=== PATIENT | male | born 1950 | race Caucasian/White ===

== ENCOUNTER 2018-03-31 08:56 | Outpatient (CLI) | payer MEDICARE, BC ==
--- NOTE | 2018-04-05 15:00 | RAD ---
MODIFIED BARIUM SWALLOW: History: Dysphasia, oropharyngeal phase R13.12. Dysphagia, pharyngeal/esophageal phase R13.14. Feedin g difficulties, R63.3 Comparison: None. Technique/Findings: Multiple consistencies of contrast was given to the patient via the speech pathologist. The radiologi st was not present. IMPRESSION: Fluoroscopy for the use of the speech pathologist. Please see their report for findings of the exam. POS: ANTHONY
== END 2018-03-31 08:57 | disposition home or self-care (01) ==
PROVIDERS: ATTEND Internal Medicine Gastroenterology
DX: R13.12 Dysphagia, oropharyngeal phase (principal); R13.14 Dysphagia, pharyngoesophageal phase; R63.3 Feeding difficulties; K21.9 Gastro-esophageal reflux disease without esophagitis
CPT/HCPCS: 74230

== ENCOUNTER 2019-07-04 12:47 | Outpatient (CLI) | payer MEDICARE, BC ==
--- NOTE | 2019-07-04 13:11 | RAD ---
RADIOGRAPH LUMBAR SPINE 4 VIEWS: DATE: 07/04/2019 HISTORY: 68-year-old male with low back pain and lumbar radiculopathy. COMPARISON: None TECHNIQUE: 3 lateral views in flexion, extension, and neutral. AP view. FINDINGS: There are 5 lumbar-type vertebrae. Levoscoliosis with apex of curvature at L2-3. High-grade disc spac e narrowing at L1-2, L2-3, L3-4, and L4-5, with endplate sclerosis and marginal osteophytosis at those levels. Mild disc space narrowing at T12-L1. Mild to moderate disc space narrowing at L5-S1. No major spondylolisthesis. Baastrup's disease. No instability between flexion and extension. High-grade left-sided facet DJD at L4-5. IMPRESSION: High-grade lumbar spondylosis with multilevel degenerative disc disease and levoscoliosis.
--- NOTE | 2019-07-04 13:43 | MRI ---
MRI Lumbar Spine Noncontrast: HISTORY: Low back pain with pain rating down right leg. Symptoms of been present for many years. COMPARISON: None FINDINGS: The visualized retroperitoneal structures demonstrate a normal appearance. Conus medullaris is normal in morphology and terminates at the T12-L1 level. Heterogeneous signal intensity is seen in the bone marrow. There is mild left convex scoliosis thorac olumbar spine. Subcentimeter focus of increased T1 and T2-weighted signal intensity is seen in the T12 vertebral body likely due to small focal area of fat versus a hemangioma. Multilevel endplate deg enerative changes are seen. There is severe multilevel height loss of the intervertebral discs. T12-L1 level: No significant central canal or neural foraminal narrowing. L1-2: Severe loss of intervertebral disc height. Mild facet hypertrophic changes are present greater on the right. Broad-based disc osteophyte complex is present resulting in mild narrowing of the central spinal canal. Moderate right and mild left-sided neural foraminal narrowing is present. L2-3: Broad-based disc osteophyte complex is present with facet hypertrophic changes and mild ligamen tous thickening. Mild to moderate central canal narrowing is present. Mild left and [id number] right-sided neural foraminal narrowing is present. L3-4: Severe loss of intervertebral disc height. Broad-based disc osteophyte complex is present. Face t hypertrophic changes are noted greater on the left. Mild narrowing of the central spinal canal is present with [id number] left and mild right-sided neural foraminal narrowing. L4-5: Broad-based disc osteophyte complex is present with mild right and moderate to severe left-side d facet hypertrophic changes. Fluid signal intensity is seen in the right facet joint. Mild narrowing central spinal canal is present. Moderate to severe left neural foraminal narrowing is pres ent with mild right-sided neural foraminal narrowing. L5-S1: Moderate to severe left-sided facet hypertrophic changes are seen. No significant disc bulge o r disc herniation is evident. Central spinal canal and neural foramina are patent. IMPRESSION: 1. Multilevel degenerative changes with left convex scoliosis lumbar spine. 2. Multilevel neural foraminal narrowing with greatest degree of neural foraminal narrowing on the le ft at the L4-5 level which is moderate to severe in severity.
== END 2019-07-04 12:48 | disposition home or self-care (01) ==
LOC: TBSIIMAG 12:47
PROVIDERS: ATTEND Neurological Surgery
DX: M54.5 Low back pain (principal); M47.816 Spondylosis without myelopathy or radiculopathy, lumbar region; M51.36 Other intervertebral disc degeneration, lumbar region; M41.86 Other forms of scoliosis, lumbar region; M48.061 Spinal stenosis, lumbar region without neurogenic claudication
CPT/HCPCS: 72110; 72148

== ENCOUNTER 2020-04-05 12:28 | Outpatient (CLI) | payer MEDICARE, BC | END 2020-04-05 12:29 | disposition home or self-care (01) | LOC: BICMRI 12:28 | PROVIDERS: ATTEND Family Medicine | DX: G89.4 Chronic pain syndrome (principal); M47.814 Spondylosis without myelopathy or radiculopathy, thoracic region; M51.9 Unspecified thoracic, thoracolumbar and lumbosacral intervertebral disc disorder | CPT/HCPCS: 72070; 72146 ==

== ENCOUNTER 2020-07-09 09:59 | Outpatient (CLI) | payer MEDICARE, BC ==
[2020-07-09 21:45] LABS: SARS-CoV-2 PCR by NAA Not Detected (NotDetected)
== END 2020-07-09 10:00 | disposition home or self-care (01) ==
LOC: LABBT 09:59
PROVIDERS: ATTEND Internal Medicine Gastroenterology
DX: Z01.812 Encounter for preprocedural laboratory examination (principal); Z20.822 Contact with and (suspected) exposure to COVID-19
CPT/HCPCS: U0003; U0005; 87635

== ENCOUNTER 2020-07-11 09:56 | Outpatient (CLI) | payer MEDICARE, BC | END 2020-07-11 09:57 | disposition home or self-care (01) | PROVIDERS: ATTEND Internal Medicine Gastroenterology | DX: R13.12 Dysphagia, oropharyngeal phase (principal); R63.3 Feeding difficulties | CPT/HCPCS: 74230 ==

== ENCOUNTER 2020-10-15 15:27 | Outpatient (CLI) | payer MEDICARE, BC | END 2020-10-15 15:28 | disposition home or self-care (01) | LOC: BICMRI 15:27 | PROVIDERS: ATTEND Orthopaedic Surgery | DX: M47.22 Other spondylosis with radiculopathy, cervical region (principal); M48.02 Spinal stenosis, cervical region | CPT/HCPCS: 72141 ==

== ENCOUNTER 2020-11-16 13:08 | Outpatient (CLI) | payer MEDICARE, BC ==
[2020-11-17 17:41] LABS: SARS-CoV-2 PCR by NAA Not Detected (NotDetected)
== END 2020-11-16 13:09 | disposition home or self-care (01) ==
LOC: LABBT 13:08
PROVIDERS: ATTEND Family Medicine
DX: Z01.812 Encounter for preprocedural laboratory examination (principal); Z20.822 Contact with and (suspected) exposure to COVID-19
CPT/HCPCS: U0003; U0005

== ENCOUNTER 2020-12-21 13:36 | Outpatient (CLI) | payer MEDICARE, BC ==
[2020-12-22 00:37] LABS: SARS-CoV-2 PCR by NAA Not Detected (NotDetected)
== END 2020-12-21 13:37 | disposition home or self-care (01) ==
LOC: LABBT 13:36
PROVIDERS: ATTEND Family Medicine
DX: Z01.812 Encounter for preprocedural laboratory examination (principal); Z20.822 Contact with and (suspected) exposure to COVID-19
CPT/HCPCS: U0003; U0005

== ENCOUNTER 2020-12-24 10:05 | Outpatient (CLI) | payer MEDICARE, BC | END 2020-12-24 10:06 | disposition home or self-care (01) | PROVIDERS: ATTEND Internal Medicine Gastroenterology | DX: I69.191 Dysphagia following nontraumatic intracerebral hemorrhage (principal); R13.12 Dysphagia, oropharyngeal phase; K20.0 Eosinophilic esophagitis | CPT/HCPCS: 74230 ==

== ENCOUNTER 2021-07-17 08:57 | Outpatient (CLI) | payer MEDICARE, BC | END 2021-07-17 08:58 | disposition home or self-care (01) | LOC: BICMRI 08:57 | DX: M54.51 Vertebrogenic low back pain (principal); M48.061 Spinal stenosis, lumbar region without neurogenic claudication | CPT/HCPCS: 72148 ==

== ENCOUNTER 2023-07-06 08:01 | Outpatient (CLI) | payer MEDICARE, BC | END 2023-07-06 08:02 | disposition home or self-care (01) | LOC: BICCT 08:01 | PROVIDERS: ATTEND Internal Medicine Critical Care Medicine | DX: J94.8 Other specified pleural conditions (principal) | CPT/HCPCS: 71250 ==

== ENCOUNTER 2024-02-26 11:40 | Outpatient (CLI) | payer MEDICARE, BC ==
[2024-02-26 13:02] LABS: #Basophils 0.04 10x3/uL (0.0-0.2); %Basophils 0.7 % (0.0-1.0); %Eosinophils 4.6 % (0.0-10.0); %Lymphocytes 24.4 % (21.0-51.0); %Monocytes 12.9 % (0.0-10.0); Hematocrit 34.6 % (42.0-52.0); Hemoglobin 11.7 g/dL (14.0-18.0); Mean Corpuscular HGB CONC 33.8 g/dL (32.0-36.0); Mean Corpuscular Hemoglobin 28.7 pg (27.0-31.0); Mean Corpuscular Volume 84.8 fL (78.0-98.0); Mean Platelet Volume 10.3 fL (7.4-10.4); Platelet Count 197 10x3/uL (130-400); RBC Distribution Width 13.6 % (11.5-14.5); Red Blood Cell (RBC) Count 4.08 mill/uL (4.70-6.10)
[2024-02-26 13:11] LABS: Bacteria/HPF None Seen HPF (None Seen); Bilirubin Negative (Negative); Blood, Urine Negative (Negative); Clarity Clear (Clear); Glucose, Urine (Dipstick) Normal (Negative); Ketone, Urine Negative (Negative); Leukocyte Negative Leu/uL (Negative); Nitrite Negative (Negative); Protein, Urine (Dipstick) Negative (Neg-Trace); RBC/HPF 0-3 HPF (0-3); Specific Gravity, Urine 1.007 (1.002-1.036); Squamous Epithelial None Seen HPF (0-3); Urobilinogen Normal mg/dL (Less than 2); WBC/HPF 0-3 HPF (0-3); pH, Urine 6.5 (5.0-9.0)
[2024-02-26 13:23] LABS: INR-International Normal Ratio 0.9; Prothrombin Time 12.4 sec (12.0-14.7)
[2024-02-26 13:24] LABS: Anion Gap 11 mmol/L (10-20); BUN (Urea Nitrogen) 14 mg/dL (8.4-25.7); Calc. Creatinine Clearance 0 mL/min (70-130); Carbon Dioxide 25 mmol/L (23-31); Chloride 104 mmol/L (98-107); Estimated GFR 76; Glucose 82 mg/dL (83-110); PTT 28.6 sec (22.9-36.1); Sodium 136 mmol/L (136-145)
== END 2024-02-26 11:41 | disposition home or self-care (01) ==
LOC: LABBT 11:40
PROVIDERS: ATTEND Urology
DX: Z01.818 Encounter for other preprocedural examination (principal); N40.1 Benign prostatic hyperplasia with lower urinary tract symptoms; R39.12 Poor urinary stream; N32.81 Overactive bladder; I25.10 Atherosclerotic heart disease of native coronary artery without angina pectoris; G89.4 Chronic pain syndrome
CPT/HCPCS: 80048; 81001; 85025; 85610; 85730; 87086

== ENCOUNTER 2024-03-10 10:05 | Day surgery (SDC) | payer MEDICARE, BC ==
[2024-02-26 12:05] VITALS: BMI 26.8
[2024-03-10] MEDS ORDERED: LevoFLOXacin D5W 500 mg (100 mL) BAG ONE (11:16)
[2024-03-10] MEDS ORDERED: fentaNYL 50 mcg/mL 1 mL Vial ONE ×3 (12:24→15:27)
[2024-03-10] MEDS ORDERED: fentaNYL 50 mcg/mL 1 mL Vial SLOW IVP PRN (12:32)
[2024-03-10] MEDS ORDERED: Midazolam HCl 2 mg/2 ml Vial ONE (13:25)
[2024-03-10] MEDS ORDERED: PROPOFOL 20 ML ONE (13:25)
[2024-03-10] MEDS ORDERED: Dexamethasone 20 MG/5 ML VIAL ONE (13:47)
[2024-03-10] MEDS ORDERED: Ondansetron PF 4 MG/2 ML Vial ONE (13:47)
[2024-03-10] MEDS ORDERED: Lidocaine 1% PF 5 ML VIAL ONE (13:47)
[2024-03-10] MEDS ORDERED: Oxybutynin 5 MG TAB ONE (14:49)
[2024-03-10] MEDS ORDERED: Phenazopyridine HCl 100 MG TAB ONE (14:49)
== END 2024-03-10 19:38 | disposition home or self-care (01) ==
LOC: SDC 10:05
PROVIDERS: ATTEND Urology
PROC: 0V508ZZ Destruction of Prostate, Via Natural or Artificial Opening Endoscopic (ICD-10-PCS; principal; 2024-03-10)
DX: N40.1 Benign prostatic hyperplasia with lower urinary tract symptoms (principal); N13.8 Other obstructive and reflux uropathy; N18.9 Chronic kidney disease, unspecified; I25.10 Atherosclerotic heart disease of native coronary artery without angina pectoris; E78.5 Hyperlipidemia, unspecified; F41.9 Anxiety disorder, unspecified; K21.9 Gastro-esophageal reflux disease without esophagitis; M19.90 Unspecified osteoarthritis, unspecified site; B39.9 Histoplasmosis, unspecified; Z88.0 Allergy status to penicillin; Z88.2 Allergy status to sulfonamides; Z91.040 Latex allergy status; Z91.048 Other nonmedicinal substance allergy status; Z79.82 Long term (current) use of aspirin; Z79.899 Other long term (current) drug therapy
CPT/HCPCS: 52601; A4333; J1100; J1956; J2250; J2405; J2704; J3010